=== PATIENT | female | born 1985 | race Hispanic/Latino ===

== ENCOUNTER 2018-12-30 09:52 | Emergency (ER) | payer SELFPAY ==
[2018-12-30 11:32] LABS: #Lymphocytes 2.5 thou/uL (1.20-3.40); #Monocytes 0.5 thou/uL (0.11-0.59); #Neutrophils 9.5 thou/uL (1.40-6.50); %Basophils 0.2 % (0.0-1.0); %Eosinophils 0.2 % (0.0-10.0); %Lymphocytes 19.9 % (21.0-51.0); %Monocytes 3.7 % (0.0-10.0); %Neutrophils 75.9 % (42.0-75.0); Hemoglobin 15.4 g/dL (12.0-16.0); Mean Corpuscular HGB CONC 33.3 g/dL (32.0-36.0); Mean Corpuscular Hemoglobin 32.7 pg (27.0-31.0); Mean Corpuscular Volume 98.3 fL (78.0-98.0); Mean Platelet Volume 7.5 fL (7.4-10.4); Platelet Count 237 thou/uL (130-400); Red Blood Cell (RBC) Count 4.72 mill/uL (4.20-5.40); White Blood Cell (WBC) Count 12.5 thou/uL (4.8-10.8)
--- NOTE | 2018-12-30 11:35 | RAD ---
TWO VIEW CHEST: History: Chest pain. FINDINGS: Lung ivy are clear. No infiltrate. Heart and mediastinum unremarkable. Vasculature normal. Osseous structures unremarkable. IMPRESSION: Unremarkable chest. POS: H
[2018-12-30 11:54] LABS: ALT (SGPT) 11 U/L (8-55); AST (SGOT) 19 U/L (5-34); Albumin 4.4 g/dL (3.5-5.0); Alkaline Phosphatase 71 U/L (40-150); Anion Gap 13 mmol/L (10-20); BUN (Urea Nitrogen) 9 mg/dL (7.0-18.7); Bilirubin, Total 0.6 mg/dL (0.2-1.2); Calc. Creatinine Clearance 0 mL/min (70-130); Calcium 9.7 mg/dL (7.8-10.44); Carbon Dioxide 24 mmol/L (22-29); Estimated GFR-MDRD Greater than 90; Globulin 2.4 g/dL (2.4-3.5); Glucose 90 mg/dL (70-105); Potassium 3.8 mmol/L (3.5-5.1); Protein, Total 6.8 g/dL (6.0-8.3)
[2018-12-30 12:04] LABS: Chloride 107 mmol/L (98-107); Sodium 140 mmol/L (136-145)
== END 2018-12-30 12:57 | disposition home or self-care (01) ==
LOC: ERS 09:52
DX: R07.89 Other chest pain (principal); F41.9 Anxiety disorder, unspecified; F17.210 Nicotine dependence, cigarettes, uncomplicated
CPT/HCPCS: 36415; 71046; 80053; 84484; 85025; 93005

== ENCOUNTER 2020-09-07 18:29 | Emergency (ER) | payer OTHER, SELFPAY ==
[2020-09-07] MEDS ORDERED: Boostrix 0.5 ML (Tdap) VIAL ONE (19:54)
== END 2020-09-07 20:08 | disposition home or self-care (01) ==
LOC: ERS 18:29
DX: S01.01XA Laceration without foreign body of scalp, initial encounter (principal); F17.210 Nicotine dependence, cigarettes, uncomplicated; V89.2XXA Person injured in unspecified motor-vehicle accident, traffic, initial encounter
CPT/HCPCS: 12001; 90471; 90715